=== PATIENT | female | born 1960 | race African-American/Black ===

== ENCOUNTER 2022-06-26 08:50 | Inpatient (IN) | payer OTHER ==
[~2022-06-26] VITALS: Ht 162.6 cm; Wt 101.3 kg
[2022-06-26 09:27] LABS: Hematocrit 45.8 % (36.0-46.0); Hemoglobin 16.6 g/dL (12.2-16.2); Mean Corpuscular Hemoglobin 30.4 pg (28.0-32.0); Mean Corpuscular Hgb Conc. 36.2 g/dL (32.0-36.0); Red Blood Cells 5.45 10^6/uL (4.0-5.20); Red Cell Distribution Width 13.6 % (11.8-14.3); White Blood Cell 4.2 10^3/uL (4.4-10.8)
[2022-06-26 09:45] LABS: Albumin 3.8 g/dL (3.4-5.0); Calcium 8.8 mg/dL (8.5-10.1); Potassium 3.2 mmol/L (3.5-5.1)
[2022-06-26 09:47] LABS: Basophils % (manual) 0 (0.0-2.0); Blast Cells 0; Eosinophils % (manual) 0 (0-7); Metamyelocytes % 0; Myelocytes % 0; Promyelocytes % 0; Reactive Lymphocytes 0
[2022-06-26 09:49] LABS: BUN/Creatinine Ratio 23.1; Bilirubin, Total 0.9 mg/dL (0.2-1.0); Total Protein 8.2 g/dL (6.4-8.2)
[2022-06-26] MEDS ORDERED: SODIUM CHLORIDE 0.9% 500 ML IV ONE (11:15)
[2022-06-26] MEDS ORDERED: POTASSIUM CHL 20 Meq TABLET PO ONE (11:15)
[2022-06-26] MEDS ORDERED: DexAMETHasone SOD PHOS 10MG/1ML VIAL INJ IV ONE (11:15)
[2022-06-26 11:34] LABS: Band Neutrophils % (manual) 9; Lymphocytes % (manual) 36 (10.0-50.0); Monocytes % (manual) 20 (0-12)
[2022-06-26] MEDS ORDERED: dilTIAZem 25 MG/5 ML VIAL IV ONE (20:15)
[2022-06-26] MEDS ORDERED: dilTIAZem HCL 50 MG/10 ML VIAL IV ONE ×2 (21:17→21:44)
[2022-06-26] MEDS ORDERED: NITROGLYCERIN 0.4 MG SL TAB SL PRN (21:30)
[2022-06-26] MEDS ORDERED: ONDANSETRON HCL 4 MG/2 ML VIAL IV PRN (21:30)
[2022-06-26] MEDS ORDERED: ACETAMINOPHEN 325 MG TAB PO PRN (21:30)
[2022-06-26] MEDS ORDERED: DEXTROSE (50%) 50ML SYRG IV PRN (21:30)
[2022-06-26] MEDS ORDERED: TEMAZEPAM 15 MG CAP PO PRN (21:30)
[2022-06-26] MEDS ORDERED: MORPHINE SULFATE INJ 2 MG/ml SYRG IV PRN (21:30)
[2022-06-26] MEDS: ACCU-CHEK COMFORT CURVE STRIP VI SCH (22:48)
[2022-06-26] MEDS: HEPARIN SODIUM (PORCINE) 5000 UNITS/ML 1ML VIAL SC SCH (22:57)
[2022-06-26] MEDS: GABAPENTIN 100 MG CAP PO SCH (22:58)
[2022-06-26] MEDS: InsuLIN REG 1unit/0.01ml Soln (100units/ml) SC SCH (22:58)
[2022-06-26] MEDS: ATORVASTATIN 20 MG TAB PO SCH (22:59)
[2022-06-26] MEDS: METOPROLOL TARTRATE 50 MG TAB PO SCH (22:59)
[2022-06-26] MEDS ORDERED: dilTIAZem 125mg/125ml BAG KIT 100 ML IV SCH (23:15)
[2022-06-27 05:18] LABS: Basophils # (auto) 0 10 ^3/uL (0-0.2); Basophils % (auto) 0.8 % (0.0-2.0); Eosinophils # (auto) 0 10 ^3/uL (0-0.8); Hematocrit 44.5 % (36.0-46.0); Hemoglobin 15.5 g/dL (12.2-16.2); Lymphocytes % (auto) 20.9 % (10.0-50.0); Mean Corpuscular Hemoglobin 29.8 pg (28.0-32.0); Mean Corpuscular Hgb Conc. 34.9 g/dL (32.0-36.0); Mean Corpuscular Volume 85.5 fL (80.0-100.0); Monocytes # (auto) 0.7 10 ^3/uL (0-1.3); Monocytes % (auto) 15.4 % (0.0-12.0); Neutrophils % (auto) 62.9 % (37.0-80.0); Nucleated Red Blood Cells % 0.2 %; Red Cell Distribution Width 13.7 % (11.8-14.3); White Blood Cell 4.7 10^3/uL (4.4-10.8)
[2022-06-27 05:36] LABS: Albumin 3.3 g/dL (3.4-5.0); BUN/Creatinine Ratio 23.8; Calcium 9.2 mg/dL (8.5-10.1); Potassium 3.8 mmol/L (3.5-5.1)
[2022-06-27] MEDS: GABAPENTIN 100 MG CAP PO SCH ×3 (05:37→22:05)
[2022-06-27 05:39] LABS: Bilirubin, Total 0.7 mg/dL (0.2-1.0)
[2022-06-27] MEDS: ACCU-CHEK COMFORT CURVE STRIP VI SCH ×3 (07:13→21:58)
[2022-06-27] MEDS: InsuLIN REG 1unit/0.01ml Soln (100units/ml) SC SCH ×3 (07:21→22:08)
[2022-06-27] MEDS ORDERED: FUROSEMIDE 20 MG TAB PO SCH (10:00)
[2022-06-27] MEDS: METOPROLOL TARTRATE 50 MG TAB PO SCH ×2 (10:00→21:58)
[2022-06-27] MEDS: PANTOPRAZOLE 40 MG TAB PO SCH (10:14)
[2022-06-27] MEDS: LOSARTAN POTASSIUM 25 MG TAB PO SCH (10:15)
[2022-06-27] MEDS: CLOPIDOGREL BISULFATE 75 MG TAB PO SCH (10:17)
[2022-06-27] MEDS: HEPARIN SODIUM (PORCINE) 5000 UNITS/ML 1ML VIAL SC SCH ×2 (10:18→22:07)
[2022-06-27] MEDS ORDERED: ASPirin 81 mg TAB PO ONE (13:45)
[2022-06-27] MEDS ORDERED: DEXTROSE (50%) 50ML SYRG IV PRN (13:45)
[2022-06-27] MEDS ORDERED: INSULIN NPH Isophane (HUMAN) 1unit/0.01ml Susp(100units/ml) SC ONE (13:45)
[2022-06-27] MEDS ORDERED: AZITHROMYCIN 500MG/ 250ML 250 ML IV ONE ×2 (13:45→17:05)
[2022-06-27] MEDS: INSULIN NPH Isophane (HUMAN) 1unit/0.01ml Susp(100units/ml) SC SCH (18:00)
[2022-06-27] MEDS: ATORVASTATIN 20 MG TAB PO SCH (22:04)
[2022-06-27 23:17] VITALS: BP 146/85
[2022-06-28] VITALS (7 sets, daily range): BP systolic 117–144; BP diastolic 71–81
[2022-06-28 05:46] LABS: Basophils # (auto) 0 10 ^3/uL (0-0.2); Basophils % (auto) 0.3 % (0.0-2.0); Eosinophils # (auto) 0 10 ^3/uL (0-0.8); Hematocrit 41.9 % (36.0-46.0); Hemoglobin 14.5 g/dL (12.2-16.2); Lymphocytes # (auto) 1.7 10 ^3/uL (0.4-5.4); Lymphocytes % (auto) 30.3 % (10.0-50.0); Mean Corpuscular Hemoglobin 29.5 pg (28.0-32.0); Mean Corpuscular Hgb Conc. 34.6 g/dL (32.0-36.0); Mean Corpuscular Volume 85.3 fL (80.0-100.0); Monocytes # (auto) 0.9 10 ^3/uL (0-1.3); Monocytes % (auto) 15.9 % (0.0-12.0); Neutrophils # (auto) 2.9 10 ^3/uL (1.6-8.6); Neutrophils % (auto) 53.5 % (37.0-80.0); Nucleated Red Blood Cells % 0.1 %; Red Blood Cells 4.92 10^6/uL (4.0-5.20); Red Cell Distribution Width 13.6 % (11.8-14.3); White Blood Cell 5.5 10^3/uL (4.4-10.8)
[2022-06-28] MEDS: GABAPENTIN 100 MG CAP PO SCH ×3 (06:01→21:57)
[2022-06-28] MEDS: ACCU-CHEK COMFORT CURVE STRIP VI SCH ×4 (06:09→21:58)
[2022-06-28] MEDS: INSULIN NPH Isophane (HUMAN) 1unit/0.01ml Susp(100units/ml) SC SCH ×2 (06:13→18:18)
[2022-06-28] MEDS: InsuLIN REG 1unit/0.01ml Soln (100units/ml) SC SCH ×4 (06:14→22:07)
[2022-06-28 06:17] LABS: Potassium 3.4 mmol/L (3.5-5.1)
[2022-06-28 06:25] LABS: BUN/Creatinine Ratio 24.3; Calcium 8.6 mg/dL (8.5-10.1)
[2022-06-28] MEDS: PANTOPRAZOLE 40 MG TAB PO SCH (09:22)
[2022-06-28] MEDS: CLOPIDOGREL BISULFATE 75 MG TAB PO SCH (09:22)
[2022-06-28] MEDS: METOPROLOL TARTRATE 50 MG TAB PO SCH ×2 (09:22→21:56)
[2022-06-28] MEDS: LOSARTAN POTASSIUM 25 MG TAB PO SCH (09:23)
[2022-06-28] MEDS: HEPARIN SODIUM (PORCINE) 5000 UNITS/ML 1ML VIAL SC SCH ×2 (09:58→22:04)
[2022-06-28] MEDS ORDERED: AZITHROMYCIN 500MG/ 250ML 250 ML IV SCH (10:00)
[2022-06-28] MEDS ORDERED: POTASSIUM CHL 20 Meq TABLET PO ONE (10:00)
[2022-06-28] MEDS ORDERED: ASPirin 81 mg TAB PO SCH (10:00)
[2022-06-28] MEDS: ATORVASTATIN 20 MG TAB PO SCH (21:57)
== END 2022-06-29 00:52 | DRG 177 ==
LOC: ER 08:50 → EDBD 08:50 → TELE 21:30 → TELE-CENTR 06-27 23:13
PROVIDERS: ADMIT Nurse Practitioner; ATTEND Internal Medicine
DX: U07.1 COVID-19 (principal); I21.A1 Myocardial infarction type 2; J12.82 Pneumonia due to coronavirus disease 2019; J96.00 Acute respiratory failure, unspecified whether with hypoxia or hypercapnia; N17.0 Acute kidney failure with tubular necrosis; E87.6 Hypokalemia; E11.9 Type 2 diabetes mellitus without complications; I48.91 Unspecified atrial fibrillation; E66.9 Obesity, unspecified; Z68.38 Body mass index [BMI] 38.0-38.9, adult; I10 Essential (primary) hypertension; Z88.0 Allergy status to penicillin; Z72.0 Tobacco use
CPT/HCPCS: 36415; 71046; 80048; 80053; 82728; 82962; 83036; 84443; 84484; 85007; 85025; 85027; 85379; 87426; 93005; 93306; G0378; J1100; J1815; J2405